=== PATIENT | female | born 1955 | race Caucasian/White ===

== ENCOUNTER 2024-06-10 00:49 | Inpatient (IN) | payer MEDICAID ==
[2024-06-10] VITALS (29 sets, daily range): BP systolic 90–184; BP diastolic 53–127; PULSE 79–102; RESP 12–22; TEMP 36.33624–36.78072; O2SAT 97–100
[~2024-06-10] VITALS: Ht 157.5 cm; Wt 46.8 kg
[2024-06-10] MEDS: ONDANSETRON 4MG ODT PO STA (02:48)
[2024-06-10 02:53] LABS: BASOPHILS % 0.1 % (0.0-2.0); HEMATOCRIT. 37.2 % (36.0-48.0); HEMOGLOBIN. 12.7 g/dL (12.0-16.0); LYMPHOCYTES % 7.1 % (20.0-50.0); MEAN CORPUSCULAR HEMOGLOBIN 30.4 pg (28.0-32.0); MEAN CORPUSCULAR HGB CONC 34.2 g/dL (31.0-37.0); MEAN PLATELET VOLUME 8.6 fl (7.4-10.4); MONOCYTES % 6.2 % (2.0-8.0); NEUTROPHILS % 86.6 % (40.0-76.0); PLATELET 310 x1000/uL (130-400); RED BLOOD CELL COUNT 4.18 mill/uL (4.2-5.4); RED CELL DISTRIBUTION WIDTH 14.3 % (11.6-14.6); WHITE BLOOD COUNT 9.8 x1000/uL (4.5-11.0)
[2024-06-10 02:58] LABS: CALCIUM 9.7 mg/dL (8.7-10.4); CARBON DIOXIDE 19 mEq/L (21-32)
[2024-06-10 03:03] LABS: CREATININE 1.9 mg/dL (0.6-1.0); UREA NITROGEN BLOOD 47 mg/dL (9-23)
[2024-06-10 03:05] LABS: ALANINE AMINOTRANSFERASE 27 IU/L (10-49); ALBUMIN 4.2 g/dL (3.2-4.8); ASPARTATE AMINOTRANSFERASE 16 IU/L (<34); BILIRUBIN DIRECT 0.1 mg/dL (<=3.0)
[2024-06-10 03:06] LABS: BILIRUBIN TOTAL 0.4 mg/dL (0.1-1.0); PROTEIN TOTAL 7.3 g/dL (6.0-8.3)
[2024-06-10 03:44] LABS: CHLORIDE 111 mEq/L (98-107); POTASSIUM 4.1 mEq/L (3.5-5.1); SODIUM 149 mEq/L (136-145)
[2024-06-10 04:10] LABS: GLUCOSE 470 mg/dL (70-105)
[2024-06-10] MEDS ORDERED: INSULIN REGULAR 100U/100ML PMX 100 ML IV STA (04:29)
[2024-06-10] MEDS ORDERED: BLOOD SUGAR DIAGNOSTIC STRIP TEST PRN ×2 (05:00→09:15)
[2024-06-10] MEDS ORDERED: POTASSIUM CHLORIDE 40 MEQ in SODIUM CHLORIDE 0.9% 230 ML IV PRN (05:00)
[2024-06-10] MEDS ORDERED: SODIUM PHOSPHATE 15 MMOL in SODIUM CHLORIDE 0.9% 245 ML IV PRN (05:00)
[2024-06-10] MEDS: DEXT 5%/0.9% NACL 1,000 ML IV SCH (05:00)
[2024-06-10] MEDS ORDERED: DEXTROSE 50% WATER 50ML SYRINGE IV PRN ×2 (05:00→21:15)
[2024-06-10] MEDS ORDERED: KCL 20MEQ/100ML PREMIX 100 ML IV PRN (05:00)
[2024-06-10] MEDS ORDERED: MAGNESIUM 2 G PREMIX 50 ML IV PRN (05:00)
[2024-06-10] MEDS: BLOOD SUGAR DIAGNOSTIC STRIP TEST SCH (05:26)
[2024-06-10] MEDS: INSULIN REGULAR 100U/100ML PMX 100 ML IV STA (05:27)
[2024-06-10] MEDS: SODIUM CHLORIDE 0.9% 1,000 ML IV SCH (05:50)
[2024-06-10] MEDS: SODIUM CHLORIDE 0.9% 1,000 ML IV ONE ×2 (05:50)
[2024-06-10] MEDS: SODIUM CHLORIDE 0.9% 2,000 ML IV ONE (06:05)
[2024-06-10 06:13] LABS: CALCIUM 9.7 mg/dL (8.7-10.4)
[2024-06-10 06:17] LABS: BG CARBOXYHEMOGLOBIN 0.1 % (0.5-1.5); BG DEOXYHEMOGLOBIN 1.7 % (0.0-5.0); BG HCO3 ACT 15.7 mmol/L (21.0-28.0); BG METHEMOGLOBIN 0.3 % (0.5-1.5); BG OXYGEN SATURATION 98.3 % (94.0-98.0); BG OXYHEMOGLOBIN 97.9 % (94.0-98.0); BG PCO2 27.3 mmHg (32.0-45.0); BG PH 7.378 (7.350-7.450); BG PO2 120.5 mmHg (83.0-108.0); BG SAMPLE SITE RIGHT RADIAL; BG VENT MODE ROOM AIR
[2024-06-10 06:18] LABS: CREATININE 1.8 mg/dL (0.6-1.0)
[2024-06-10 08:32] LABS: BETA HYDROXYBUTYRATE 6.5 mMol/L (0.0-0.3)
[2024-06-10] MEDS ORDERED: BLOOD SUGAR DIAGNOSTIC STRIP TEST SCH (09:15)
[2024-06-10] MEDS ORDERED: IPRATROPIUM/ALBUTEROL 0.5-3(2.5)MG/3ML NEB HHN PRN (09:15)
[2024-06-10 11:21] LABS: BG BASE EXCESS -3.6 mmol/L (-2.0-3.0); BG CARBOXYHEMOGLOBIN 0.3 % (0.5-1.5); BG FRACTION INSPIRED OXYGEN 21; BG HCO3 ACT 19.8 mmol/L (21.0-28.0); BG METHEMOGLOBIN 0.3 % (0.5-1.5); BG OXYHEMOGLOBIN 97.4 % (94.0-98.0); BG PCO2 30.9 mmHg (32.0-45.0); BG PH 7.425 (7.350-7.450); BG PO2 107.3 mmHg (83.0-108.0); BG SAMPLE SITE RIGHT RADIAL; BG TOTAL HEMOGLOBIN 12.1 g/dL (12.0-16.0); BG VENT MODE ROOM AIR
[2024-06-10 12:46] LABS: CHLORIDE 121 mEq/L (98-107); SODIUM 155 mEq/L (136-145)
[2024-06-10 12:47] LABS: CARBON DIOXIDE 22 mEq/L (21-32)
[2024-06-10 12:48] LABS: CALCIUM 8.4 mg/dL (8.7-10.4)
[2024-06-10 12:52] LABS: CREATININE 1.2 mg/dL (0.6-1.0); GLUCOSE 180 mg/dL (70-105); UREA NITROGEN BLOOD 33 mg/dL (9-23)
[2024-06-10 12:55] LABS: PHOSPHORUS 2.2 mg/dL (2.5-4.9)
[2024-06-10] MEDS ORDERED: KCL 20MEQ/100ML PREMIX 100 ML IV SCH (13:15)
[2024-06-10] MEDS: HYDRALAZINE 20MG/ML VIAL IV PRN (13:24)
[2024-06-10] MEDS: POTASSIUM CHLORIDE 40MEQ in DEXT 5% WATER 250ML IV NR (13:58)
[2024-06-10] MEDS: PANTOPRAZOLE SODIUM 40 MG/VIAL IV NR (14:19)
[2024-06-10] MEDS: INSULIN GLARGINE 100 UNITS/ML SUBCUT NR (14:20)
[2024-06-10 17:58] LABS: CHLORIDE 121 mEq/L (98-107); POTASSIUM 3.7 mEq/L (3.5-5.1); SODIUM 154 mEq/L (136-145)
[2024-06-10 17:59] LABS: CARBON DIOXIDE 21 mEq/L (21-32)
[2024-06-10 18:07] LABS: PHOSPHORUS 2.5 mg/dL (2.5-4.9)
[2024-06-10 19:04] LABS: CLARITY URINE CLOUDY (CLEAR); COLOR URINE YELLOW (YELLOW); GLUCOSE URINE 3+ (NEGATIVE); KETONES URINE TRACE (NEGATIVE); LEUKOCYTE ESTERASE URINE 2+ (NEGATIVE); NITRITE URINE NEGATIVE (NEGATIVE); OCCULT BLOOD URINE TRACE (NEGATIVE); PROTEIN URINE 3+ (NEGATIVE); SPECIFIC GRAVITY URINE 1.017 (1.005-1.030); UROBILINOGEN URINE 0.2 E.U./dL (0.2-1.0)
[2024-06-10 19:15] LABS: *AMPHETAMINES SCREEN URINE NEGATIVE (NEGATIVE); *BARBITURATES SCREEN URINE NEGATIVE (NEGATIVE); *BENZODIAZEPINES SCREEN URINE NEGATIVE (NEGATIVE); *COCAINE SCREEN URINE NEGATIVE (NEGATIVE); METHADONE URINE SCREEN NEGATIVE (NEGATIVE); OPIATES URINE SCREEN NEGATIVE (NEGATIVE)
[2024-06-10 19:16] LABS: CANNABINOID URINE SCREEN NEGATIVE (NEGATIVE); ECSTASY MDMA SCREEN URINE NEGATIVE (NEGATIVE); PHENCYCLIDINE URINE SCREEN NEGATIVE (NEGATIVE)
[2024-06-10 19:21] LABS: BACTERIA URINE 3+; SQUAMOUS EPITHELIAL CELL URINE 1+ /lpf (RARE/1+); WBC URINE TNTC /hpf (0-2)
[2024-06-10] MEDS: ONDANSETRON HCL 4MG/2ML INJ IV PRN (19:50)
[2024-06-10] MEDS: METOCLOPRAMIDE HCL 10MG/2ML VIAL IV NR (21:27)
[2024-06-10] MEDS ORDERED: INSULIN LISPRO 100 UNITS/ML SUBCUT SCH (21:30)
[2024-06-10] MEDS: CLONIDINE 0.1MG TABLET PO PRN (21:35)
[2024-06-10 21:49] LABS: POTASSIUM 3.7 mEq/L (3.5-5.1)
[2024-06-10 21:50] LABS: CALCIUM 8.4 mg/dL (8.7-10.4)
[2024-06-10 21:55] LABS: CREATININE 1.2 mg/dL (0.6-1.0)
[2024-06-11] VITALS (49 sets, daily range): BP systolic 73–181; BP diastolic 47–153; PULSE 78–107; RESP 0–21; TEMP 36.33624–37.2252; O2SAT 94–99
[2024-06-11 06:42] LABS: BASOPHILS % 0.2 % (0.0-2.0); EOSINOPHILS % 0.1 % (0.0-5.0); HEMATOCRIT. 31.6 % (36.0-48.0); HEMOGLOBIN. 10.6 g/dL (12.0-16.0); LYMPHOCYTES % 13.7 % (20.0-50.0); MEAN CORPUSCULAR HEMOGLOBIN 30.6 pg (28.0-32.0); MEAN CORPUSCULAR HGB CONC 33.6 g/dL (31.0-37.0); MEAN CORPUSCULAR VOLUME 90.9 fL (81.0-99.0); MEAN PLATELET VOLUME 9.6 fl (7.4-10.4); MONOCYTES % 12.7 % (2.0-8.0); NEUTROPHILS % 73.3 % (40.0-76.0); PLATELET 247 x1000/uL (130-400); RED BLOOD CELL COUNT 3.48 mill/uL (4.2-5.4); RED CELL DISTRIBUTION WIDTH 14.8 % (11.6-14.6); WHITE BLOOD COUNT 10.3 x1000/uL (4.5-11.0)
[2024-06-11 06:49] LABS: POTASSIUM 3.8 mEq/L (3.5-5.1)
[2024-06-11 06:50] LABS: CALCIUM 8.2 mg/dL (8.7-10.4)
[2024-06-11 06:55] LABS: CREATININE 1.2 mg/dL (0.6-1.0)
[2024-06-11 06:57] LABS: ALBUMIN 3.1 g/dL (3.2-4.8)
[2024-06-11 07:00] LABS: T4 FREE 1.2 ng/dL (0.89-1.76); THYROID STIMULATING HORMONE 1.16 uIU/mL (0.55-4.78)
[2024-06-11] MEDS: INSULIN LISPRO 100 UNITS/ML SUBCUT SCH (07:35)
[2024-06-11] MEDS: BLOOD SUGAR DIAGNOSTIC STRIP TEST SCH (07:35)
[2024-06-11] MEDS: PANTOPRAZOLE 40MG DR TABLET PO SCH (07:36)
[2024-06-11] MEDS: ENOXAPARIN 30MG/0.3ML SYR SUBCUT SCH (08:07)
[2024-06-11] MEDS ORDERED: SODIUM CHLORIDE 0.45% 1,000 ML IV SCH (08:30)
[2024-06-11] MEDS: CEFTRIAXONE 1GM/50ML 50 ML IV SCH (10:51)
[2024-06-11] MEDS: DEXTROSE 5% WATER 1,000 ML IV ONE (17:22)
[2024-06-12] VITALS (82 sets, daily range): BP systolic 49–168; BP diastolic 35–107; PULSE 69–105; RESP 0–27; TEMP 36.44736–37.28076; O2SAT 95–100
[2024-06-12 05:40] LABS: BASOPHILS % 0.1 % (0.0-2.0); DIFFERENTIAL COMMENT 0; EOSINOPHILS % 0.2 % (0.0-5.0); HEMATOCRIT. 31.9 % (36.0-48.0); LYMPHOCYTES % 12.9 % (20.0-50.0); MEAN CORPUSCULAR HEMOGLOBIN 30.8 pg (28.0-32.0); MEAN CORPUSCULAR HGB CONC 34.4 g/dL (31.0-37.0); MEAN CORPUSCULAR VOLUME 89.3 fL (81.0-99.0); MEAN PLATELET VOLUME 8.5 fl (7.4-10.4); MONOCYTES % 6.3 % (2.0-8.0); NEUTROPHILS % 80.5 % (40.0-76.0); PLATELET 252 x1000/uL (130-400); RED BLOOD CELL COUNT 3.57 mill/uL (4.2-5.4); RED CELL DISTRIBUTION WIDTH 14.6 % (11.6-14.6); WHITE BLOOD COUNT 10.3 x1000/uL (4.5-11.0)
[2024-06-12 05:55] LABS: POTASSIUM 3.4 mEq/L (3.5-5.1)
[2024-06-12 05:56] LABS: CALCIUM 8.3 mg/dL (8.7-10.4)
[2024-06-12 06:01] LABS: CREATININE 1.2 mg/dL (0.6-1.0)
[2024-06-12] MEDS: POTASSIUM CHLORIDE 20MEQ TABLET SR PO SCH (08:07)
[2024-06-12] MEDS: IPRATROPIUM/ALBUTEROL 0.5-3(2.5)MG/3ML NEB HHN SCH (09:27)
[2024-06-12] MEDS: METOCLOPRAMIDE HCL 10MG/2ML VIAL IV SCH (12:21)
[2024-06-12] MEDS: FAMOTIDINE 20MG TABLET PO SCH (20:12)
[2024-06-12] MEDS: INSULIN GLARGINE 100 UNITS/ML SUBCUT SCH (21:25)
[2024-06-13] VITALS (10 sets, daily range): BP systolic 108–131; BP diastolic 50–87; PULSE 85–99; RESP 16–20; TEMP 36.61404–37.05852; O2SAT 95–100
[2024-06-13 08:35] LABS: BASOPHILS % 0.2 % (0.0-2.0); EOSINOPHILS % 1.8 % (0.0-5.0); HEMATOCRIT. 29.7 % (36.0-48.0); HEMOGLOBIN. 10.2 g/dL (12.0-16.0); LYMPHOCYTES % 17.7 % (20.0-50.0); MEAN CORPUSCULAR HEMOGLOBIN 30.2 pg (28.0-32.0); MEAN CORPUSCULAR HGB CONC 34.4 g/dL (31.0-37.0); MEAN CORPUSCULAR VOLUME 87.9 fL (81.0-99.0); MEAN PLATELET VOLUME 8.5 fl (7.4-10.4); MONOCYTES % 7.6 % (2.0-8.0); NEUTROPHILS % 72.7 % (40.0-76.0); PLATELET 230 x1000/uL (130-400); RED BLOOD CELL COUNT 3.38 mill/uL (4.2-5.4); RED CELL DISTRIBUTION WIDTH 14.3 % (11.6-14.6); WHITE BLOOD COUNT 10.8 x1000/uL (4.5-11.0)
[2024-06-13 08:43] LABS: POTASSIUM 3.3 mEq/L (3.5-5.1)
[2024-06-13 08:44] LABS: CALCIUM 8.2 mg/dL (8.7-10.4)
[2024-06-13 08:49] LABS: CREATININE 1.2 mg/dL (0.6-1.0)
[2024-06-13] MEDS: LEVOFLOXACIN 750MG PREMIX 150 ML IV SCH (18:24)
[2024-06-14] VITALS: BP 101/51; PULSE 100; RESP 20; TEMP 36.83628; O2SAT 98
[2024-06-14 04:00] VITALS: BP 148/77; PULSE 90; RESP 20; TEMP 36.72516; O2SAT 97
[2024-06-14 08:00] VITALS: BP 156/80; PULSE 89; RESP 18; TEMP 36.114; O2SAT 98
[2024-06-14 09:48] VITALS: PULSE 88; RESP 16
[2024-06-14] MEDS ORDERED: BLOO-1992 MC (11:58)
[2024-06-14] MEDS ORDERED: LEVO750T68 PO (11:58)
[2024-06-14] MEDS ORDERED: METF-414 PO (11:58)
[2024-06-14 12:00] VITALS: BP 138/61; PULSE 105; RESP 18; TEMP 36.50292; O2SAT 100
[2024-06-14 12:04] VITALS: BP 150/78; PULSE 88; TEMP 98.6; O2SAT 99
== END 2024-06-14 13:05 | disposition home or self-care (01) | DRG 420 ==
LOC: ER 00:49 → CVICU 05:49 → EDBEDREQ 07:35 → EDBEDREQTM 07:50 → 6EST 06-13 00:19
PROVIDERS: ADMIT Internal Medicine; ATTEND Internal Medicine
DX: E11.10 Type 2 diabetes mellitus with ketoacidosis without coma (principal); N17.9 Acute kidney failure, unspecified; N39.0 Urinary tract infection, site not specified; E87.1 Hypo-osmolality and hyponatremia; N18.9 Chronic kidney disease, unspecified; I49.1 Atrial premature depolarization; R00.0 Tachycardia, unspecified; E86.0 Dehydration; I12.9 Hypertensive chronic kidney disease with stage 1 through stage 4 chronic kidney disease, or unspecified chronic kidney disease; B96.20 Unspecified Escherichia coli [E. coli] as the cause of diseases classified elsewhere; E87.6 Hypokalemia; Z16.12 Extended spectrum beta lactamase (ESBL) resistance; Z87.440 Personal history of urinary (tract) infections; Z79.84 Long term (current) use of oral hypoglycemic drugs
CPT/HCPCS: 36415; 36600; 71045; 74176; 80048; 80051; 80076; 80305; 81003; 82010; 82040; 82375; 82805; 82962; 83036; 83735; 83930; 84100; 84295; 84439; 84443; 85025; 87077; 87186; 93005; 94640; 97162; 97166; 97530; 98960; 99291; C1893; J0360; J0696; J1650; J1815; J1956; J2405; J2470; J2765; J3480; J7060; Q0162